=== PATIENT | female | born 1950 | race Caucasian/White ===

== ENCOUNTER 2018-08-07 09:46 | Observation (INO) | payer OTHER ==
[~2018-08-07] VITALS: Ht 160 cm; Wt 74.0 kg
[2018-08-07 10:36] LABS: BASOPHIL % 0.3 % (0-2); PLATELET COUNT 264 x10^3mcL (130-400); RED CELL DISTRIBUTION WIDTH 12.3 % (11.5-14.5)
[2018-08-07 10:52] LABS: CALCIUM 9.3 mg/dL (8.5-10.1); CHLORIDE SERUM 97 mmol/L (98-107); CREATININE SERUM 0.7 mg/dL (0.6-1.0); GFR1 > 60 mL/min; GLUCOSE SERUM 289 mg/dL (74-106); POTASSIUM SERUM 4.2 mmol/L (3.5-5.1); SODIUM SERUM 134 mmol/L (136-145)
[2018-08-07 10:56] LABS: ALKALINE PHOSPHATASE 148 U/L (46-116); ALT/SGPT 102 U/L (14-59); AST/SGOT 73 U/L (15-37); BILIRUBIN TOTAL 0.5 mg/dL (0.20-1.00); TOTAL PROTEIN, SERUM 7.8 g/dL (6.4-8.2)
--- NOTE | 2018-08-07 10:58 | NUR ---
PT BIB DAUGHTER WITH C/O CHEST PAIN AND SOB. PT AMBULATED FROM LOBBY TO ROOM WITH STEADY GAIT AND NO ASSIST. PT PLACED ON FULL CM, ORIENTED TO ROOM, USE OF CALL CORONADO AND BED IN LOWEST POSITION. AT BEDSIDE PT IS AAOX4, RESPS E/U, SKIN IS PINK, WARM AND DRY. PT SPEAKING IN COMPLETE SENTANCES. PT AWAITING MSE.
--- NOTE | 2018-08-07 11:10 | NUR ---
PT MEDICATED PER MD ORDERS. PT VERBALIZED UNDERSTANDING UNDERSTANDING OF MEDICATION. SEE EMAR FOR DETAILS.
--- NOTE | 2018-08-07 12:10 | NUR ---
PT AMBULATED TO RESTROOM AND BACK WITH STEADY GAIT AN NO ASSIST. RESPS E/U.
--- NOTE | 2018-08-07 13:50 | NUR ---
PT RESTING IN SEMI-FOWLERS POSITION. NO ACUTE DISTRESS NOTED AEB, RESPS E/U, SKIN IS PINK, WARM AND DRY.
[2018-08-07 14:29] LABS: CHOLESTEROL/HDL RATIO 5.3
[2018-08-07] MEDS ORDERED: METFORMIN HCL1000 MG PO (16:43)
[2018-08-07] MEDS ORDERED: GLUCOTROL5 MG PO (16:44)
[2018-08-07] MEDS ORDERED: JANUVIA100 M1 PO (16:44)
[2018-08-07] MEDS ORDERED: LOSARTAN POTASS50 M1 PO (16:45)
--- NOTE | 2018-08-07 16:47 | NUR ---
REPORT GIVEN TO RED LEIVA TO ASSUME CARE.
[2018-08-07 17:43] VITALS: BP 161/75
[2018-08-07 17:51] VITALS: BP 161/75
--- NOTE | 2018-08-07 17:54 | NUR ---
RECEIVED PT FROM ER, PT ADMIT FOR CHEST PAIN, PT IS A/O X4, VERBAL RESPONSIVE, ABLE TO TELL WHAT SHE NEEDS. LUNG SOUND CLEAR BILATERAL, NO COUGH, NO SOB, PT IS ON TELE 34, NSR, C/O MILD CHEST PAIN 2/10 AND RADIATE TO BACK, INCREASE PAIN WHILE DEEP BREATH. BOWEL SOUND PRESENT ALL 4 QUADRANTS, NO DISTENTION, NO TENDER. PEDAL PULSE PRESENT BOTH FEET, NO EDEMA, IV AT LEFT AC, NO LEAKING, NO INFILTRAITON. ALL ADLS ASSIST, ALL NEED MET, CALL LIGHT IN REACH, WILL CONTINUE TO MONITOR.
--- NOTE | 2018-08-07 18:26 | NUR ---
PT EATING DINNER IN BED. DENIES CHEST PAIN OR PRESSURE. FAMILY MEMBER AT BEDSIDE. IV INTACT AND PATENT. BED IN LOW POSITION. CALL LIGHT WITHIN REACH. WILL BE ENDORSED.
--- NOTE | 2018-08-07 19:41 | NUR ---
SHIFT REASSESSMENT DONE.PATIENT ALERT AND ORIENTED.NOT IN RESP DISTRESS,FAMILY AT BEDSIDE,SUPPORTIVE OF CARE,HEPLOCK LAC INTACT.TELE 34 SR.NO CHEST OAIN NOW.REPORT SAYS GETS INCONTINENT AT TIMES.CALL LIGHT IN REACH.
[2018-08-07 20:31] VITALS: BP 149/68
--- NOTE | 2018-08-07 21:00 | NUR ---
FAMILY STAYING OVER.SUPPORTIVE OF CARE.
--- NOTE | 2018-08-07 23:30 | NUR ---
PATIENT C/O CHEST PAIN,GIVEN TYLENOL FIRST BEFORE NITRO.BP 140/70.
--- NOTE | 2018-08-08 01:30 | NUR ---
PATIENT SAYS SHE HAD HEADACHE AFTER NITRO,WANTING STRONGER MED NOW.WILL GIVE MSO4.
--- NOTE | 2018-08-08 01:38 | NUR ---
MSO4 2 MG GIVEN,WAS AMBULATINF BEFORE SHOT,SAYS BED IS HARD.BP 143/72
[2018-08-08 05:12] VITALS: BP 147/63
--- NOTE | 2018-08-08 05:59 | NUR ---
PATIENT I AND O MEASURED.HEPLOCK INTACT.WILL ENDORSE TO NEXT SHIFT.
--- NOTE | 2018-08-08 07:22 | NUR ---
RECEIVED PT FROM SHIFT NURSE A/OX4 LYING IN BED. DENIES CHEST PAIN OR PRESSURE. IV INTACT AND PATENT. FAMILY MEMBER AT BEDSIDE. BED IN LOW POSITION. CALL LIGHT WITHIN REACH. WILL CONTINUE TO MONITOR.
[2018-08-08] MEDS ORDERED: OMEPRAZOLE40 M1 PO (08:54)
[2018-08-08 09:15] VITALS: BP 139/75
[2018-08-08 10:22] VITALS: BP 139/75
--- NOTE | 2018-08-08 11:28 | NUR ---
PT A/OX4 UPON DC. NO ACUTE DISTRESS NOTED. DENIES CHEST PAIN OR PRESSURE. IV REMOVED AND CATH INTACT. EDUCATION PROVIDED. INSTRUCTED TO FOLLOW UP WITH PCP. PT VERBALIZED UNDERSTANDING. PERSONAL BELONGINGS TAKEN HOME. ACCOMANIED BY FAMILY MEMBERS AND RN TO LOBBY.
== END 2018-08-08 11:10 | disposition home or self-care (01) | DRG 313 ==
LOC: ED 09:46 → DU 15:34 → EDBEDREQ 15:38 → DU 17:11
PROVIDERS: Emergency Medicine; ADMIT Internal Medicine Pulmonary Disease
DX: R07.89 Other chest pain (principal); K21.9 Gastro-esophageal reflux disease without esophagitis; R13.10 Dysphagia, unspecified; E11.9 Type 2 diabetes mellitus without complications; I10 Essential (primary) hypertension; E66.9 Obesity, unspecified; Z79.84 Long term (current) use of oral hypoglycemic drugs
CPT/HCPCS: G0378; J1650; J2270; J2405; J3010; Q0092

== ENCOUNTER 2019-05-30 19:59 | Emergency (ER) | payer OTHER ==
[~2019-05-30] VITALS: Ht 162.6 cm; Wt 74.8 kg
[~2019-05-30 19:59] MED LIST: GLUCOTROL5 MG PO; JANUVIA100 M1 PO; LOSARTAN POTASS50 M1 PO; METFORMIN HCL1000 MG PO; OMEPRAZOLE40 M1 PO
[2019-05-30 20:17] VITALS: Ht 162.6 cm; Wt 74.8 kg
[2019-05-31 02:15] LABS: BASOPHIL % 0.4 % (0-2); PLATELET COUNT 315 x10^3mcL (130-400); RED CELL DISTRIBUTION WIDTH 12.8 % (11.5-14.5)
[2019-05-31 02:35] LABS: CALCIUM 9.4 mg/dL (8.5-10.1); CARBON DIOXIDE 30.4 mmol/L (21-32); CHLORIDE SERUM 103 mmol/L (98-107); CREATININE SERUM 0.6 mg/dL (0.6-1.0); GFR1 > 60 mL/min; GLUCOSE SERUM 109 mg/dL (74-106); POTASSIUM SERUM 4.1 mmol/L (3.5-5.1); SODIUM SERUM 140 mmol/L (136-145)
[2019-05-31 02:43] LABS: ALBUMIN 3.7 g/dL (3.4-5.0); ALKALINE PHOSPHATASE 109 U/L (46-116); ALT/SGPT 49 U/L (14-59); AST/SGOT 28 U/L (15-37); BILIRUBIN TOTAL 0.42 mg/dL (0.20-1.00); TOTAL PROTEIN, SERUM 7.6 g/dL (6.4-8.2)
[2019-05-31 04:10] VITALS: BP 136/67
== END 2019-05-31 04:11 | disposition short-term general hospital (02) ==
LOC: ED 19:59
PROVIDERS: Emergency Medicine
DX: S06.9X9A Unspecified intracranial injury with loss of consciousness of unspecified duration, initial encounter (principal); E11.9 Type 2 diabetes mellitus without complications; W22.8XXA Striking against or struck by other objects, initial encounter; Y93.89 Activity, other specified; Y92.89 Other specified places as the place of occurrence of the external cause; Y99.8 Other external cause status
CPT/HCPCS: 36415; Q0162